=== PATIENT | female | born 1950 | race Caucasian/White ===

== ENCOUNTER 2016-07-23 10:16 | Emergency (ER) | payer MEDICARE ==
[2016-07-23 10:49] VITALS: BP 116/74
--- NOTE | 2016-07-23 11:11 | UC ---
Throat Pain/Nasal Erik HPI - HPI Summary HPI Summary: SINUS PAIN AND PRESSURE X 10 DAYS + NASAL CONGESTION, COUGH, PND NO FEVER, NO CHILLS - History of Current Complaint Chief Complaint: UCRespiratory Stated Complaint: SINUS COMPLAINT Time Seen by Provider: 07/23/16 10:44 Hx Obtained From: Patient Onset/Duration: Gradual Onset, Lasting Days - 10, Still Present Severity: Moderate Cough: Nonproductive Associated Signs & Symptoms: Positive: Sinus Discomfort, Nasal Discharge. Negative: Dysphagia, FB Sensation, Drooling, Wheezing, Hoarseness - Allergies/Home Medications Allergies/Adverse Reactions: Allergies Allergy/AdvReac Type Severity Reaction Status Date / Time Meloxicam Allergy Hives/Diff. Verified 07/23/16 10:50 Breathing/I tching Home Medications: Home Medications Acetaminophen TAB* [Tylenol TAB*] 325 mg PO Q6H PRN 07/23/16 [History Confirmed 07/23/16] Amlodipine Besylate-Benazepril [Lotrel 10-40 mg] 1 cap PO DAILY 07/23/16 [ History Confirmed 07/23/16] Aspirin [Aspirin Adult Low Dose] 81 mg PO DAILY 07/23/16 [History Confirmed 10/04] Calcium Ascorbate [Vitamin C] 500 mg PO DAILY 07/23/16 [History Confirmed ] Calcium/Vitamin D TAB 250/125* [Oscal D TAB 250/125*] 500 mg PO DAILY 07/23/16 [ History Confirmed 07/23/16] Centrum Silver 1 tab PO DAILY 07/23/16 [History Confirmed 07/23/16] Cholecalciferol TAB* [Vitamin D TAB*] 1,000 unit PO DAILY 07/23/16 [History Confirmed 07/23/16] Levothyroxine TAB* [Synthroid TAB*] 75 mcg PO DAILY 07/23/16 [History Confirmed 07/23/16] Metoprolol Succinate [Toprol Xl] 50 mg PO DAILY 07/23/16 [History Confirmed 10/04] Otc Cough Syrup 1 dose PO QPM PRN 07/23/16 [History Confirmed 07/23/16] Simvastatin [Zocor 40 MG (NF)] 40 mg PO QPM 07/23/16 [History Confirmed 07/23/16 ] Spironolactone TAB* [Aldactone TAB*] 50 mg PO DAILY 07/23/16 [History Confirmed 07/23/16] PMH/Surg Hx/FS Hx/Imm Hx Endocrine History Of: Reports: Thyroid Disease Cardiovascular History Of: Reports: Hypertension - Surgical History Surgical History: Yes Surgery Procedure, Year, and Place: left oopherectomy, left breast bx, b/l carpal tunnel, - Family History Known Family History: Positive: Hypertension - Social History Alcohol Use: Occasionally Substance Use Type: None Smoking Status (MU): Former Smoker Review of Systems Constitutional: Negative Skin: Negative Eyes: Negative ENT: Nasal Discharge Respiratory: Cough All Other Systems Reviewed And Are Negative: Yes Physical Exam Triage Information Reviewed: Yes Appearance: Well-Appearing, No Pain Distress, Well-Nourished Vital Signs: Initial Vital Signs Temp 98.7 F 07/23/16 10:43 Pulse 86 07/23/16 10:43 Resp 20 07/23/16 10:43 BP 116/74 07/23/16 10:43 Vital Signs Reviewed: Yes Eyes: Positive: Conjunctiva Inflamed. Negative: Discharge ENT: Positive: Normal ENT inspection, Hearing grossly normal, Pharyngeal erythema, Nasal congestion, Nasal drainage, TMs normal Neck exam: Normal Neck: Positive: Supple, Nontender, No Lymphadenopathy Respiratory: Positive: Chest non-tender, Lungs clear, Normal breath sounds Cardiovascular: Positive: RRR, No Murmur, Pulses Normal Skin Exam: Normal Throat Pain/Nasal Course/Dx - Differential Dx/Diagnosis Provider Diagnoses: SINUSITIS Discharge - Discharge Plan Condition: Stable Disposition: HOME Prescriptions: Amoxicillin/Clavulanate TAB* [Augmentin TAB 875*] 875 mg PO BID #20 tab Patient Education Materials: Sinusitis (ED) Additional Instructions: FOLLOW UP NEEDED
== END 2016-07-23 11:21 | disposition home or self-care (01) ==
LOC: UCCORT 10:16
DX: J32.9 Chronic sinusitis, unspecified (principal); R13.10 Dysphagia, unspecified; Z88.6 Allergy status to analgesic agent; I10 Essential (primary) hypertension; E07.9 Disorder of thyroid, unspecified; Z87.891 Personal history of nicotine dependence
CPT/HCPCS: 99202; G0463